=== PATIENT | male | born 1945 | race Caucasian/White ===

== ENCOUNTER → 2016-08-30 | Outpatient (CLI) | payer OTHER ==
[~2016-08-30] VITALS: Ht 177.8 cm; Wt 101.8 kg
[~2016-08-30] MED LIST: 00186-0372-20 IH; ASPIRIN E.C. 8181 MG PO; DUO-KAPS1 CAP; DUO-KAPS1 CAP PO; FLOMAX 0.40.4 MG/CAP PO; HYZAAR 12.5 MG-1 TAB PO; HYZAAR 50-12.1 UDTAB; MASON NATURAL1200 MG PO; MULTI VITAMINS1 TAB PO; THE MEDICINE S200 M2 PO; ZINC SO4 PO
[2016-08-30 05:49] VITALS: BP 161/77; PULSE 61
[2016-08-30 07:00] VITALS: BP 145/77; PULSE 99
[2016-08-30 07:01] VITALS: BP 159/82; PULSE 95
[2016-08-30 07:02] VITALS: BP 150/79; PULSE 96
== END ==
LOC: COL.CARD 05:35
DX: I10 Essential (primary) hypertension (principal); J45.909 Unspecified asthma, uncomplicated; N40.0 Benign prostatic hyperplasia without lower urinary tract symptoms; L30.9 Dermatitis, unspecified; N32.81 Overactive bladder; E78.5 Hyperlipidemia, unspecified; K80.20 Calculus of gallbladder without cholecystitis without obstruction; R55 Syncope and collapse; I49.3 Ventricular premature depolarization; Z87.891 Personal history of nicotine dependence; Z80.42 Family history of malignant neoplasm of prostate
CPT/HCPCS: A9502; J2785

== ENCOUNTER 2017-10-28 23:31 | Emergency (ER) | payer OTHER ==
[~2017-10-28] VITALS: Ht 177.8 cm; Wt 97.7 kg
[2017-10-28 23:57] LABS: BASO # 0.1 (0.0-0.2); BASO % 1.2 % (0.0-2.0); EOS # 0.7 (0.0-0.7); EOS % 10.6 % (0-4.0); GRAN # 3.8 (1.4-6.5); GRAN % 54.6 % (42.2-75.2); HEMATOCRIT 38.4 % (42.0-52.0); HEMOGLOBIN 13.4 g/dl (13.5-18.0); LYMPH # 1.5 (1.2-3.4); LYMPH % 21.9 % (20.0-51.0); MEAN CELL VOLUME 94 fl (80.0-100.0); MEAN CORPUSCULAR HEMOGLOBIN 33 pg (27.0-31.0); MEAN CORPUSCULAR HGB CONC 35 g/dl (33.0-37.0); MEAN PLATELET VOLUME 10.5 fl (7.4-10.4); MONO # 0.8 (0.1-0.6); MONO % 11.6 % (1.7-9.3); PLATELET COUNT 197 K/mm3 (130-400); REDCELL DISTRIBUTION WIDTH-CV 12.1 % (11.5-14.5)
[2017-10-29 00:01] LABS: INR 1.1 (0.8-3.0); PROTHROMBIN TIME 12.4 SECONDS (9.7-12.8)
[2017-10-29 00:04] LABS: PARTIAL THROMBOPLASTIN TIME 35.2 SECONDS (26.0-37.0)
[2017-10-29 00:12] LABS: ALBUMIN 4.1 gm/dL (3.5-5.0); BILIRUBIN,TOTAL 0.3 mg/dL (0.0-1.0); CALCIUM 8.3 mg/dL (8.4-10.2); CREATININE, serum 1.09 mg/dL (0.66-1.25); POTASSIUM 3.2 mmol/L (3.4-5.0); TOTAL PROTEIN 7.2 gm/dL (6.4-8.2)
[2017-10-29 07:20] VITALS: BP 113/72; PULSE 80
== END 2017-10-29 07:21 | disposition home or self-care (01) ==
LOC: COL.ER 23:31
PROVIDERS: Emergency Medicine
DX: S06.0X0A Concussion without loss of consciousness, initial encounter (principal); F10.129 Alcohol abuse with intoxication, unspecified; Z79.82 Long term (current) use of aspirin; W19.XXXA Unspecified fall, initial encounter; W22.8XXA Striking against or struck by other objects, initial encounter; Y90.8 Blood alcohol level of 240 mg/100 ml or more; Y92.59 Other trade areas as the place of occurrence of the external cause
CPT/HCPCS: J2405; J7030

== ENCOUNTER → 2019-06-10 | Outpatient (CLI) | payer MEDICARE | LOC: COL.RAD 05-07 09:00 | DX: Z13.6 Encounter for screening for cardiovascular disorders (principal); I77.811 Abdominal aortic ectasia ==

== ENCOUNTER 2019-10-27 17:06 | Emergency (ER) | payer MEDICARE ==
[~2019-10-27] VITALS: Ht 177.8 cm; Wt 100.0 kg
[2019-10-27 17:19] VITALS: TEMP 97.7
[2019-10-27] MEDS ORDERED: ZYRTEC 10MG10 MG PO (17:24)
[2019-10-27 17:36] LABS: BASO # 0.1 (0.0-0.2); EOS # 1.1 (0.0-0.7); EOS % 11.9 % (0-4.0); GRAN # 5.7 (1.4-6.5); GRAN % 64.6 % (42.2-75.2); HEMATOCRIT 38.7 % (42.0-52.0); HEMOGLOBIN 13.3 g/dl (13.5-18.0); LYMPH # 1.3 (1.2-3.4); LYMPH % 14.8 % (20.0-51.0); MEAN CELL VOLUME 96 fl (80.0-100.0); MEAN CORPUSCULAR HEMOGLOBIN 33 pg (27.0-31.0); MEAN CORPUSCULAR HGB CONC 34 g/dl (33.0-37.0); MEAN PLATELET VOLUME 10.8 fl (7.4-10.4); MONO # 0.7 (0.1-0.6); MONO % 7.4 % (1.7-9.3); PLATELET COUNT 190 K/mm3 (130-400); RED BLOOD COUNT 4.05 M/mm3 (4.20-5.60); REDCELL DISTRIBUTION WIDTH-CV 12.1 % (11.5-14.5)
[2019-10-27 17:38] LABS: INR 1.1 (0.8-3.0); PROTHROMBIN TIME 12.3 SECONDS (9.7-12.8)
[2019-10-27 17:46] LABS: ALANINE AMINOTRANSFERASE 19 U/L (4-49); ALBUMIN 4.3 gm/dL (3.5-5.0); ALKALINE PHOSPHATASE 61 U/L (50-136); ANION GAP 11 mmol/L (7-16); AST,SGOT 34 U/L (15-37); BILIRUBIN,TOTAL 0.7 mg/dL (0.0-1.0); BLOOD UREA NITROGEN 22 mg/dL (9-20); C-REACTIVE PROTEIN < 0.5 mg/dL (0.0-0.9); CARBON DIOXIDE 26 mmol/L (22-30); CHLORIDE 104 mmol/L (98-107); CREATININE, serum 1.17 (0.66-1.25); GLUCOSE 103 mg/dL (74-106); POTASSIUM 3.6 mmol/L (3.4-5.0); SODIUM 140 mmol/L (137-145); TOTAL PROTEIN 7.4 gm/dL (6.4-8.2)
[2019-10-27 19:15] VITALS: BP 140/73; PULSE 82
[2019-10-27] MEDS ORDERED: AMOXICILLIN 8751 TAB PO (19:28)
[2019-10-27] MEDS ORDERED: NORCO 325 MG-51 TAB PO (19:28)
[2019-10-27] MEDS ORDERED: ZOFRAN ODT4 MG PO (19:28)
== END 2019-10-27 19:49 | disposition home or self-care (01) ==
LOC: COL.ER 17:06
PROVIDERS: Physician Assistant
DX: S06.0X0A Concussion without loss of consciousness, initial encounter (principal); S02.19XA Other fracture of base of skull, initial encounter for closed fracture; S02.31XA Fracture of orbital floor, right side, initial encounter for closed fracture; S02.40CA Maxillary fracture, right side, initial encounter for closed fracture; I10 Essential (primary) hypertension; N40.0 Benign prostatic hyperplasia without lower urinary tract symptoms; R40.2410 Glasgow coma scale score 13-15, unspecified time; Z79.82 Long term (current) use of aspirin; W11.XXXA Fall on and from ladder, initial encounter; Y92.009 Unspecified place in unspecified non-institutional (private) residence as the place of occurrence of the external cause
CPT/HCPCS: J2405; J3010; J7030; Q9967

== ENCOUNTER 2021-06-17 09:16 | Emergency (ER) | payer MEDICARE ==
[~2021-06-17] VITALS: Ht 177.8 cm; Wt 100.9 kg
[~2021-06-17 09:16] MED LIST changes: +AMOXICILLIN 8751 TAB PO; +NORCO 325 MG-51 TAB PO; +ZOFRAN ODT4 MG PO; +ZYRTEC 10MG10 MG PO
[2021-06-17 09:23] VITALS: TEMP 98.3
[2021-06-17 10:35] LABS: HEMOGLOBIN 11.7 g/dl (13.5-18.0); MEAN CELL VOLUME 95 fl (80.0-100.0); MEAN CORPUSCULAR HEMOGLOBIN 32 pg (27-31); MEAN CORPUSCULAR HGB CONC 34 g/dl (33.0-37.0); MEAN PLATELET VOLUME 11.4 fl (7.4-10.4); PLATELET COUNT 196 K/mm3 (130-400); RED BLOOD COUNT 3.64 M/mm3 (4.20-5.60); REDCELL DISTRIBUTION WIDTH-CV 12.5 % (11.5-14.5)
[2021-06-17 10:36] LABS: HEMATOCRIT 34.7 % (42.0-52.0)
[2021-06-17 10:49] LABS: CALCIUM 8.9 mg/dL (8.4-10.2); CREATININE, serum 1.21 mg/dL (0.72-1.25); POTASSIUM 4.4 mmol/L (3.5-4.5)
[2021-06-17 11:15] VITALS: BP 120/61; PULSE 80
== END 2021-06-17 11:20 | disposition home or self-care (01) ==
LOC: COL.ER 09:16
PROVIDERS: Emergency Medicine
DX: S70.12XA Contusion of left thigh, initial encounter (principal); Z87.891 Personal history of nicotine dependence; Z28.310 Unvaccinated for COVID-19; W20.8XXA Other cause of strike by thrown, projected or falling object, initial encounter; Y99.0 Civilian activity done for income or pay

== ENCOUNTER → 2021-12-22 | Outpatient (CLI) | payer MEDICARE ==
[~2021-12-22] MED LIST changes: +MACROBID 1100 MG/CAP PO; +PROSCAR 5MG5 MG PO
== END ==
LOC: COL.RAD 10:11
DX: I86.1 Scrotal varices (principal); N43.3 Hydrocele, unspecified